=== PATIENT | female | born 1945 | race Caucasian/White ===

== ENCOUNTER 2017-10-05 10:20 | Outpatient (CLI) | payer MEDICARE ==
--- NOTE | 2017-10-05 10:50 | RAD ---
RIGHT HIP TWO VIEWS: History: Hip pain. FINDINGS: Minimal arthritic changes of the hip are noted. No significant joint space narrowing. Arthritic calzada e of the lower lumbar spine are seen. IMPRESSION: Minimal arthritic changes of the hip. POS: [facility]
--- NOTE | 2017-10-05 10:51 | RAD ---
LEFT HIP TWO VIEWS: History: Hip pain. FINDINGS: No significant joint space narrowing is seen. There are arthrosclerotic changes of the vessels. There is no fracture or other abnormalities. IMPRESSION: 1. Very minimal arthritic changes of the left hip. No significant joint space narrowing. 2. Atherosclerosis. POS: [facility]
== END 2017-10-05 10:21 | disposition home or self-care (01) ==
LOC: RAD 10:20
PROVIDERS: ATTEND Specialist
DX: M25.551 Pain in right hip (principal); M25.552 Pain in left hip; I70.90 Unspecified atherosclerosis

== ENCOUNTER 2018-03-31 08:31 | Outpatient (CLI) | payer MEDICARE | END 2018-03-31 08:32 | disposition home or self-care (01) | LOC: BICMAMMO 08:31 | PROVIDERS: ATTEND Specialist | DX: Z13.820 Encounter for screening for osteoporosis (principal) | CPT/HCPCS: 77080 ==

== ENCOUNTER 2018-11-21 14:40 | Outpatient (CLI) | payer MEDICARE ==
--- NOTE | 2018-11-21 15:13 | ULT ---
FThyroid ultrasound: 11/21/2018 COMPARISON: None HISTORY: Thyroid nodules TECHNIQUE: Multiplanar grayscale sonographic imaging of the thyroid gland obtained. FINDINGS: Thyroid isthmus measures 4 mm in AP dimension. Right lobe measures 4.1 x 1.5 x 1.8 cm. Left lobe measures 4.6 x 1.7 x 1.6 cm. No nodule noted within the thyroid isthmus. There is a hypoechoic mildly heterogeneous solid nodule in the superior aspect of the right lobe of t he thyroid gland measuring 1.2 x 0.7 x 0.8 cm. There is mild internal blood flow noted. No definite i nternal calcification is seen. There is a second mildly lobulated solid hypoechoic nodule within the posterior aspect of the midport ion of the right lobe of the thyroid gland measuring 1.0 x 0.8 x 1.1 cm. Within the left lobe of the thyroid gland anteriorly there is an oval ill-defined hypoechoic heteroge neous nodule measuring 1.4 x 0.8 x 1.2 cm. IMPRESSION: TI-RADS 4-moderately suspicious. Given size of nodules between 1.0 and 1.5 cm, follow-up thyroid ultrasound is advised in 6 months.
== END 2018-11-21 14:41 | disposition home or self-care (01) ==
LOC: BICULT 14:40
PROVIDERS: ATTEND Specialist
DX: E04.2 Nontoxic multinodular goiter (principal)
CPT/HCPCS: 76536

== ENCOUNTER 2020-07-09 08:57 | Outpatient (CLI) | payer MEDICARE ==
--- NOTE | 2020-07-09 09:45 | RAD ---
LEFT SHOULDER 3 VIEWS: Date: 07/09/2020 HISTORY: Shoulder pain. COMPARISON: None. FINDINGS: Very small glenoid and humeral head osteophytes. Normal appearance of the acromioclavicular joint. No acute fracture or malalignment. Ribs are intact. IMPRESSION: No acute osseous abnormality. POS: [facility]
== END 2020-07-09 08:58 | disposition home or self-care (01) ==
LOC: BICRAD 08:57
PROVIDERS: ATTEND Specialist
DX: M25.512 Pain in left shoulder (principal)

== ENCOUNTER 2023-11-16 14:52 | Outpatient (CLI) | payer MEDICARE | END 2023-11-16 14:53 | disposition home or self-care (01) | LOC: SCSRAD 14:52 → BICRAD 14:53 | PROVIDERS: ATTEND Obstetrics & Gynecology Female Pelvic Medicine and Reconstructive Surgery | DX: R93.89 Abnormal findings on diagnostic imaging of other specified body structures (principal); J98.4 Other disorders of lung | CPT/HCPCS: 71046 ==

== ENCOUNTER 2024-08-06 10:04 | Outpatient (CLI) | payer MEDICARE | END 2024-08-06 10:05 | disposition home or self-care (01) | LOC: BICRAD 10:04 | PROVIDERS: ATTEND Specialist | DX: M54.50 Low back pain, unspecified (principal); M47.816 Spondylosis without myelopathy or radiculopathy, lumbar region; M43.17 Spondylolisthesis, lumbosacral region | CPT/HCPCS: 72100 ==